=== PATIENT | male | born 1995 | race African-American/Black ===

== ENCOUNTER 2021-09-13 04:28 | Emergency (ER) | payer OTHER ==
[~2021-09-13] VITALS: Ht 180.3 cm; Wt 77.1 kg
[~2021-09-13 04:28] MED LIST: NOHOMEMEDICATIONS; NORCO 5-325 TA1 EACH PO
[2021-09-13 07:43] VITALS: BP 118/69
--- NOTE | 2021-09-14 07:27 | EKG ---
[address] [address] [place] [address] ELECTROCARDIOGRAM REPORT Name: BLAIR CASTRO Room #: DEP AMIRA Fontana#: [id number] Admission: 09/13/21 Attend Phys: Discharge: 09/13/21 Date of : [birth year] Report #: [id number] [facility] ED Test Date: 2021-09-13 Test Time: 04:40:28 Pat Name: BLAIR CASTRO Department: Room: Gender: M Spring Encaser: MAGED : 1995 Requested By: Miguel Spear Order Number: [id number] MD: Nathan Lin Measurements Intervals [place]ner Rate: 81 P: 49 OK: 120 QRS: 86 QRSD: 97 T: -1 QT: 338 QTc: 393 Interpretive Statements Sinus rhythm Borderline T abnormalities, inferior leads ST elev, probable normal early repol pattern Baseline wander in lead(s) II,III,aVR,aVF,V2,V6 No previous ECG available for comparison Electronically Signed On 09-14-2021 7:27:15 [employer] by Nathan Lin [email or web address] <ELECTRONICALLY SIGNED> By: Nathan Lin MD, [facility] 09/14/21 0727 0440 0440 Nathan Lin MD, FACC /EPI
== END 2021-09-13 07:44 | disposition home or self-care (01) ==
LOC: ER 04:28
DX: U07.1 COVID-19 (principal); R07.89 Other chest pain; F12.90 Cannabis use, unspecified, uncomplicated